=== PATIENT | female | born 1980 | race Caucasian/White ===

== ENCOUNTER → 2016-09-16 | Outpatient (REF) ==
[2005-03-12 07:15] VITALS: PULSE 70; TEMP 97.2
[~2016-09-16] MED LIST: ATIVAN 0.50.5 MG/TAB PO; DEPO-PROVE150 MG/1 M IM; GLUCOSAMINE; LANTUS SOLOS100 U/ML SQ; MOTRIN 600600 MG/TAB PO; MUCINEX 60600 MG/TA1 PO; MULTI VITAMINS1 TAB PO; PRENATAL1 TA1 PO; PROTONIX 40MG T40 MG PO; SLOW FE45 MG PO; VITAMINS
== END ==
LOC: ZLAB.WCH 15:04
DX: Z01.89 Encounter for other specified special examinations (principal)

== ENCOUNTER → 2022-09-13 | Outpatient (CLI) | payer BC ==
[2005-03-12 07:15] VITALS: PULSE 70; TEMP 97.2
== END ==
LOC: MC.RAD 08:38
DX: Z12.31 Encounter for screening mammogram for malignant neoplasm of breast (principal)

== ENCOUNTER → 2023-10-24 | Outpatient (CLI) | payer BC ==
[2005-03-12 07:15] VITALS: BP 123/64; PULSE 70; TEMP 97.2
== END ==
LOC: MC.RAD 12:41
DX: Z12.31 Encounter for screening mammogram for malignant neoplasm of breast (principal)